=== PATIENT | female | born 1970 | race African-American/Black ===

== ENCOUNTER 2016-06-29 11:22 | Emergency (ER) | payer MEDICAID ==
[~2016-06-29] VITALS: Ht 165.1 cm; Wt 110.0 kg
[2016-06-29 11:23] VITALS: BP 140/108; PULSE 62; RESP 15; TEMP 98; O2SAT 95
[2016-06-29] MEDS ORDERED: ONDANSETRON ODT 4 MG TAB PO ONE (14:45)
[2016-06-29] MEDS ORDERED: ACETAMINOPHEN 325 MG TAB PO ONE (14:45)
--- NOTE | 2016-06-29 14:48 | PD ---
HPI Chief Complaint: Cold / Flu Symptoms Time Seen by Provider: 14:40 Travel History International Travel<30 days: No Contact w/Intl Traveler<30days: No Traveled to known affect area: No History of Present Illness HPI Examined in the presence of a nurse. 45-year-old female presents for evaluation. Since yesterday evening she has had a stuffy nose and a headache as well as myalgias. This morning she had some nausea and one episode of vomiting but she is no longer nauseous. She tried using some Mucinex which helped with her stuffy nose somewhat. She has not checked her temperature. Denies cough or sore throat, abdominal pain, chest pain or shortness of breath, dysuria, flank pain, increased urinary frequency or hesitancy. She reports that her daughter has similar symptoms. Denies recent travel. She has no other complaints at this time. [facility] Social History Alcohol Use: Yes Tobacco Use: Yes Allergies-Medications (Allergen,Severity, Reaction): Coded Allergies: No Known Allergies (Unverified , 06/29/16) Reported Meds & Prescriptions Reported Meds & Active Scripts Active Zofran Odt (Ondansetron Odt) 4 Mg Tab 4 Mg SL Q6HR PRN Tamiflu (Oseltamivir Phosphate) 75 Mg Cap 75 Mg PO BID 5 Days Review of Systems Except as stated in HPI: all other systems reviewed are Neg Physical Exam Narrative GENERAL: Well-developed well-nourished female in no acute distress SKIN: Warm and dry. HEAD: Atraumatic. Normocephalic. EYES: Pupils equal and round. No scleral icterus. No injection or drainage. ENT: No nasal bleeding or discharge. Mucous membranes pink and moist. Rhinorrhea. NECK: Trachea midline. No JVD. No lymphadenopathy. CARDIOVASCULAR: Regular rate and rhythm. No murmur appreciated. RESPIRATORY: No accessory muscle use. Clear to auscultation. Breath sounds equal bilaterally. GASTROINTESTINAL: Abdomen soft, non-tender, nondistended. Hepatic and splenic margins not palpable. MUSCULOSKELETAL: No obvious deformities. No edema. NEUROLOGICAL: Awake and alert. No obvious cranial nerve deficits. Motor grossly within normal limits. Normal speech. Data Data Last Documented VS Vital Signs Date Time Temp Pulse Resp B/P Pulse Ox O2 Delivery O2 Flow Rate FiO2 06/29/16 15:17 68 16 152/98 96 06/29/16 11:23 98.0 Orders Influenzae A/B Antigen (06/29/16 14:44) Ondansetron Odt (Zofran Odt) (06/29/16 14:45) Acetaminophen (Tylenol) (06/29/16 14:45) Oral Rehydration (06/29/16 14:44) MDM Medical Decision Making Medical Screen Exam Complete: Yes Emergency Medical Condition: Yes Medical Record Reviewed: Yes Interpretation(s) Influenza antigen positive influenza A Differential Diagnosis Rhinitis, sinusitis, influenza, viral syndrome Narrative Course 45-year-old female with a one-day history of nasal congestion, myalgias, headache. She had some nausea and one episode of vomiting this morning which resolved. Physical examination is reassuring. Her abdomen is soft and nontender. Her lungs sound clear. She has no meningeal signs. She is afebrile and not tachycardic. Plan is to provide the patient with Zofran and Tylenol as well as oral rehydration. An influenza antigen test will be performed and she will be reassessed. The patient is positive for influenza A. She will be discharged with Tamiflu and Zofran. Diagnosis Primary Impression: Influenza A Additional Instructions: Medication as prescribed. Stay well hydrated well-nourished. Take Tylenol or Motrin for fever. If you develop any acutely new or worsening symptoms return to the emergency room. Med/Other Pt SpecificInfo: Prescription(s) given Scripts Ondansetron Odt (Zofran Odt)4 Mg Tab4 Mg SL Q6HR PRN (Nausea/Vomiting) #20 TAB Ref 0 Prov:Vincent Garza MD 06/29/16 Oseltamivir (Tamiflu)75 Mg Cap75 Mg PO BID 5 Days Ref 0 Prov:Vincent Garza MD 06/29/16 Disposition: 01 DISCHARGE HOME Condition: Stable Mil Hernandez Jun 29, 2016 14:48
[2016-06-29 15:17] VITALS: BP 152/98; PULSE 68; RESP 16; O2SAT 96
[2016-06-29] MEDS ORDERED: OSEL75 PO (15:51)
[2016-06-29] MEDS ORDERED: ZOFR4TAB3 SL (15:51)
== END 2016-06-29 16:48 | disposition home or self-care (01) ==
LOC: NEPC 11:22
DX: Z72.0 Tobacco use (principal); J10.1 Influenza due to other identified influenza virus with other respiratory manifestations
CPT/HCPCS: 87804; 99284